=== PATIENT | female | born 1985 | race American Indian/Alaskan Native ===

== ENCOUNTER 2019-03-01 12:52 | Inpatient (IN) | payer OTHER, MEDICAID ==
[2019-03-01] MEDS ORDERED: TERBUTALINE 1 MG/1 ML INJ IVP PRN (13:41)
[2019-03-01] MEDS ORDERED: BUTORPHANOL 2 MG/1 ML INJ IV PRN (13:41)
[2019-03-01] MEDS ORDERED: MINERAL OIL 30 ML ORAL LIQD PO PRN (13:41)
[2019-03-01] MEDS ORDERED: TERBUTALINE 1 MG/1 ML INJ SUB-Q PRN (13:41)
[2019-03-01] MEDS ORDERED: NALOXONE 0.4 MG/1 ML INJ IV PRN (13:41)
[2019-03-01] MEDS ORDERED: AMPICILLIN/NS 2 GM/100 ML 2 GM/100 ML BAG IV ONE (13:41)
[2019-03-01] MEDS ORDERED: ONDANSETRON 4 MG/2 ML INJ IV PRN (13:41)
[2019-03-01] MEDS ORDERED: LIDOCAINE (2%) 20 MG/1 ML VIAL 20 ML MDV INFILTRATI ONE (13:41)
[2019-03-01] MEDS ORDERED: OXYTOCIN DRIP 30 UNITS/500 ML BAG IV SCH (14:00)
[2019-03-01] MEDS ORDERED: OXYTOCIN 20 UNIT/1000ML DRIP 20 UNITS/1,000 ML BAG IV SCH (14:00)
--- NOTE | 2019-03-01 14:00 | History and Physical Report ---
History of Present Illness Date of examination: 03/01/19 Chief complaint: SROM History of present illness: Past History : 1 Term Births: 0 Premature Births: 0 Living Children: 0 Para: 0 Mult. Births: 0 Prev : 0 Aborta: 0 Elect. Ab: 0 Spont. Ab: 0 Ectopics: 0 Risk Factors: Smoked Tobacco Use: Never smoker Smokeless Tobacco Use: Never Passive smoke exposure: no Drug use: no HIV high-risk behavior: low risk Alcohol use: no Dietary Counseling: pn yes Past Medical History: Reviewed history from 02/10/2016 and no changes required: Hypertension Past Surgical History: Reviewed history from 08/11/2014 and no changes required: negative Past Medical History Anesthesia Complications: negative Anemia: negative Autoimmune Disorder: negative Bleeding Disorder: negative Blood Transfusions: negative Breast Disease: negative Diabetes: negative Heart Disease: negative Hypertension: positive, CHTN Hepatitis/Liver Disease: negative Kidney Disease/UTI: negative Neurologic/Epilepsy/Migraines: negative Phlebitis/Varicosities: negative Psychiatric: negative Pulmonary Disease/Asthma: negative Thyroid Disease: negative Hospitalizations: negative Surgery (Non-restorative rehab aide): negative Abnormal PAP: negative, Colpo, normal, 06/25/18 RAMÓN Exposure: positive Infertility: positive Uterine Anomaly: positive Uterine Surgery (not C/S): positive Other Gynecologic Problems: positive Medical History Comments: CHTN- on Labetolol and HCTZ Family Hx: mom- asthma, HTN Social Hx: Patient is single Denies ETOH/smoking/drugs works as early education teacher Smoking History: Patient has never smoked. Infection History Hx of STD: HPV HIV Risk Eval: low risk Hepatitis B Risk Eval: low risk Personal hx. of genital herpes: no Partner hx. of genital herpes: no Rash, Viral, or Febrile illness since last LMP? no Varicella/Chicken Pox Status: Previous Disease TB Risk: no Genetic History Congenital Heart Defect: Mom: no Dad: no Giovanni Disease: Mom: no Dad: no Thalassemia Mom: no Dad: no Neural Tube Defect Mom: no Dad: no Down's Syndrome Mom: no Dad: no Grady-Sachs Mom: no Dad: no Sickle Cell Disease/Trait Mom: no Dad: no Hemophilia Mom: no Dad: no Muscular Dystrophy Mom: no Dad: no Cystic Fibrosis Mom: no Dad: no [place] Chorea Mom: no Dad: no Mental Retardation Mom: no Dad: no Fragile X Mom: no Dad: no Other Genetic/Chromosomal Disorder Mom: no Dad: no Child w/other defect Mom: no Dad: no Enviromental Exposures Xray Exposure: no Medication, drug, or alcohol use since LMP: no Chemical/Other Exposure: no Exposure to Cat Liter: no Hx of Parvovirus (Fifth Disease): no 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: No known allergies Past History - Obstetrical History Expected Date of Delivery: 03/21/19 Actual Gestation: 37 Week(s) 1 Day(s) : 1 Medications and Allergies Allergies Allergy/AdvReac Type Severity Reaction Status Date / Time No Known Allergies Allergy Unverified 03/01/19 13:13 Active Meds: Active Medications Butorphanol Tartrate (Stadol) 2 mg IV Q2H PRN PRN Reason: Pain , Severe (7-10) Ephedrine Sulfate (Ephedrine Sulfate) 10 mg IV Q2M PRN PRN Reason: Hypotension Oxytocin/Sodium Chloride (Pitocin/Ns 20 Unit/1000ml Drip) 20 units in 1,000 mls @ 125 mls/hr IV DIRECT VINCE Oxytocin/Sodium Chloride (Pitocin/Ns 30 Unit/500ml) 30 units in 500 mls @ 4 mls/hr IV TITR VINCE; Protocol Lactated Ringer's (Lactated Ringers) 1,000 mls @ 125 mls/hr IV DIRECT VINCE Ampicillin Sodium (Ampicillin/Ns 1 Gm/50 Ml) 1 gm in 50 mls @ 100 mls/hr IV Q4HR VINCE; Protocol Ampicillin Sodium (Ampicillin/Ns 2 Gm/100 Ml) 2 gm in 100 mls @ 100 mls/hr IV ONCE ONE; Protocol Stop: 03/01/19 14:40 Lidocaine (Xylocaine 2%) 20 ml INFILTRATI ONCE ONE Stop: 03/01/19 13:42 Mineral Oil (Mineral Oil) 30 ml PO QHS PRN PRN Reason: Constipation Naloxone HCl (Naloxone) 0.1 mg IV Q2MIN PRN PRN Reason: Res Rate </= 8 or 02 SAT < 92% Ondansetron HCl (Zofran) 4 mg IV Q8H PRN PRN Reason: Nausea And Vomiting Terbutaline Sulfate (Brethine) 0.25 mg SUB-Q ONCE PRN PRN Reason: Hyperstimulation/Hypertonicity Terbutaline Sulfate (Brethine) 0.25 mg IVP ONCE PRN PRN Reason: Hyperstimulation/Hypertonicity Review of Systems All systems: negative Genitourinary: leakage of fluid - Physical Exam Breasts: Positive: deferred Cardiovascular: Regular rate Lungs: Positive: Normal air movement Abdomen: Negative: tenderness Genitourinary (Female): Positive: normal external genitalia, normal perenium Uterus: Positive: enlarged. Negative: tender Extremities: Positive: normal. Negative: tenderness, edema - Obstetrical FHR: category 1 Uterine Contraction Monitor Mode: External Cervical Dilatation: 2 Cervical Effacement Percentage: 100 station: -2 ROM per RN Uterine Contraction Pattern: Irregular Results All other labs normal. Assessment and Plan - Patient Problems (1) 37 weeks gestation of Current Visit: Yes Status: Acute (2) membrane rupture Current Visit: Yes Status: Acute Plan to address problem: Start pitocin (3) Body mass index (BMI) of 40.1 to 44.9 in adult Current Visit: Yes Status: Acute (4) Hypertension Current Visit: Yes Status: Chronic Qualifiers: Hypertension type: essential hypertension Qualified Code(s): I10 - Essential (primary) hypertension Plan to address problem: She has not been on medication during this Will check PIH labs (5) GBS carrier Current Visit: Yes Status: Acute Plan to address problem: Start Ampicillin
[2019-03-01 14:01] LABS: Hemoglobin 12.6 gm/dl (10.1-14.3); Mean Corpuscular HGB Conc 34 % (30-34); Mean Corpuscular Volume 92 fl (79-97); Platelet Count 265 K/mm3 (140-440); Red Blood Count 4.02 M/mm3 (3.65-5.03); Red Cell Distribution Width 13.5 % (13.2-15.2)
[2019-03-01] MEDS: LACTATED RINGERS 1,000 ML IV SCH (14:33)
[2019-03-01] MEDS: AMPICILLIN/NS 1 GM/50 ML 1 GM/50 ML BAG IV SCH ×2 (18:27→23:34)
[2019-03-01] MEDS ORDERED: NALOXONE 2 MG/2 ML INJ IV PRN (18:48)
[2019-03-01] MEDS ORDERED: DEXMEDETOMIDINE 200 MCG/2 ML VIAL IV ONE (18:52)
--- NOTE | 2019-03-01 19:04 | Progress Note ---
Assessment and Plan Anticipate vaginal delivery - Patient Problems (1) 37 weeks gestation of Current Visit: Yes Status: Acute (2) membrane rupture Current Visit: Yes Status: Acute (3) Body mass index (BMI) of 40.1 to 44.9 in adult Current Visit: Yes Status: Acute (4) Hypertension Current Visit: Yes Status: Chronic Qualifiers: Hypertension type: essential hypertension Qualified Code(s): I10 - Ess ential (primary) hypertension (5) GBS carrier Current Visit: Yes Status: Acute Subjective - Subjective Date of service: 03/01/19 Principal diagnosis: IUP@37 weeks, SROM, active labor Interval history: Past History : 1 Term Births: 0 Premature Births: 0 Living Children: 0 Para: 0 Mult. Births: 0 Prev : 0 Aborta: 0 Elect. Ab: 0 Spont. Ab: 0 Ectopics: 0 Risk Factors: Smoked Tobacco Use: Never smoker Smokeless Tobacco Use: Never Passive smoke exposure: no Drug use: no HIV high-risk behavior: low risk Alcohol use: no Dietary Counseling: pn yes Past Medical History: Reviewed history from 02/10/2016 and no changes required: Hypertension Past Surgical History: Reviewed history from 08/11/2014 and no changes required: negative Past Medical History Anesthesia Complications: negative Anemia: negative Autoimmune Disorder: negative Bleeding Disorder: negative Blood Transfusions: negative Breast Disease: negative Diabetes: negative Heart Disease: negative Hypertension: positive, CHTN Hepatitis/Liver Disease: negative Kidney Disease/UTI: negative Neurologic/Epilepsy/Migraines: negative Phlebitis/Varicosities: negative Psychiatric: negative Pulmonary Disease/Asthma: negative Thyroid Disease: negative Hospitalizations: negative Surgery (Non-frame wirer): negative Abnormal PAP: negative, Colpo, normal, 06/25/18 RAMÓN Exposure: positive Infertility: positive Uterine Anomaly: positive Uterine Surgery (not C/S): positive Other Gynecologic Problems: positive Medical History Comments: CHTN- on Labetolol and HCTZ Family Hx: mom- asthma, HTN Social Hx: Patient is single Denies ETOH/smoking/drugs works as computer science teacher Smoking History: Patient has never smoked. Infection History Hx of STD: HPV HIV Risk Eval: low risk Hepatitis B Risk Eval: low risk Personal hx. of genital herpes: no Partner hx. of genital herpes: no Rash, Viral, or Febrile illness since last LMP? no Varicella/Chicken Pox Status: Previous Disease TB Risk: no Genetic History Congenital Heart Defect: Mom: no Dad: no Giovanni Disease: Mom: no Dad: no Thalassemia Mom: no Dad: no Neural Tube Defect Mom: no Dad: no Down's Syndrome Mom: no Dad: no Grady-Sachs Mom: no Dad: no Sickle Cell Disease/Trait Mom: no Dad: no Hemophilia Mom: no Dad: no Muscular Dystrophy Mom: no Dad: no Cystic Fibrosis Mom: no Dad: no [place] Chorea Mom: no Dad: no Mental Retardation Mom: no Dad: no Fragile X Mom: no Dad: no Other Genetic/Chromosomal Disorder Mom: no Dad: no Child w/other defect Mom: no Dad: no Enviromental Exposures Xray Exposure: no Medication, drug, or alcohol use since LMP: no Chemical/Other Exposure: no Exposure to Cat Liter: no Hx of Parvovirus (Fifth Disease): no 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: No known allergies Patient reports: contractions Objective - Vital Signs Vital Signs: Vital Signs - 12hr 03/01/19 03/01/19 03/01/19 13:58 14:06 15:14 Temperature 98.2 F Pulse Rate 100 H 103 H Respiratory 18 Rate Blood Pressure 142/67 120/76 O2 Sat by Pulse Oximetry 03/01/19 03/01/19 03/01/19 18:22 18:23 18:27 Temperature Pulse Rate 68 106 H Respiratory Rate Blood Pressure O2 Sat by Pulse 87 82 L 100 Oximetry 03/01/19 03/01/19 03/01/19 18:32 18:37 18:42 Temperature Pulse Rate 100 H 107 H 109 H Respiratory Rate Blood Pressure O2 Sat by Pulse 100 100 100 Oximetry 03/01/19 03/01/19 03/01/19 18:47 18:52 18:56 Temperature Pulse Rate 114 H 100 H 113 H Respiratory Rate Blood Pressure 141/99 O2 Sat by Pulse 99 100 Oximetry 03/01/19 18:57 Temperature Pulse Rate 121 H Respiratory Rate Blood Pressure O2 Sat by Pulse 100 Oximetry - Exam Breasts: deferred Cardiovascular: Regular rate Lungs: Normal air movement Vulva: both: normal FHR: category 2 FHR comments: Marked variability noted, possibility d/t stadol, ISE placed w/o difficulty, + accels with scalp stim, FHT"s 110's now, normal variability. Pitocin off, O2 placed, she's sitting for epidural now. Cervical Dilatation: 5.5 Cervical Effacement Percentage: 100 station: 0 Uterine Contraction Pattern: Regular - Labs Labs: Laboratory Results - last 24 hr 03/01/19 03/01/19 03/01/19 13:38 13:38 13:38 WBC 7.4 RBC 4.02 Hgb 12.6 Hct 37.0 MCV 92 MCH 31 MCHC 34 RDW 13.5 Plt Count 265 Syphilis IgG Antibody Non-reactive Blood Type B POSITIVE Antibody Screen Negative
[2019-03-01] MEDS: ePHEDrine SULFATE 50 MG/1 ML INJ IV PRN ×4 (19:25→19:59)
--- NOTE | 2019-03-01 19:27 | Anesthesia Consultation ---
Anesthesia Consult and Med Hx Date of service: 03/01/19 - Airway Anesthetic Teeth Evaluation: Good ROM Head & Neck: Adequate Mental/Hyoid Distance: Adequate Mallampati Class: Class III Intubation Access Assessment: Probably Good - Pulmonary Exam CTA: Yes - Cardiac Exam Cardiac Exam: RRR - Pre-Operative Health Status ASA Pre-Surgery Classification: ASA3 Proposed Anesthetic Plan: Epidural - Pre-Anesthesia Comment Pre-Anesthesia Comments: PSH: DENIES - Pulmonary Hx Smoking: No Hx Asthma: No Hx Respiratory Symptoms: No SOB: No COPD: No Home Oxygen Therapy: No Hx Pneumonia: No Hx Sleep Apnea: No - Cardiovascular System Hx Hypertension: No Hx Coronary Artery Disease: No Hx Heart Attack/AMI: No Hx Angina: No Hx Percutaneous Transluminal Coronary Angioplasty (PTCA): No Hx Cardia Arrhythmia: No Hx Pacemaker: No Hx Internal Defibrillator: No Hx Valvular Heart Disease: No Hx Heart Murmur: No Hx Peripheral Vascular Disease: No - Central Nervous System Hx Neuromuscular Disorder: No Hx Seizures: No CVA: No Hx Back Pain: Yes Hx Psychiatric Problems: No - Gastrointestinal Hx Ulcer: No Hx Gastroesophageal Reflux Disease: Yes - Endocrine Hx Renal Disease: No Hx End Stage Renal Disease: No Hx Cirrhosis: No Hx Liver Disease: No Hx Insulin Dependent Diabetes: No Hx Non-Insulin Dependent Diabetes: No Hx Thyroid Disease: No Hx Hypothyroidism: No Hx Hyperthyroidism: No - Hematic Hx Anemia: No Hx Sickle Cell Disease: No - Other Systems Hx Alcohol Use: No Hx Substance Use: No Hx Cancer: No Hx Obesity: Yes (BMI 41)
[2019-03-01] MEDS ORDERED: ePHEDrine SULFATE 50 MG/1 ML INJ ONE (19:49)
[2019-03-01] MEDS: fentaNYL-BUPIV 2 MCG/ML-0.125% 200 MCG/100 ML BAG EPIDURAL SCH (20:29)
[2019-03-02] MEDS: LACTATED RINGERS 1,000 ML IV SCH (00:23)
[2019-03-02] MEDS ORDERED: LIDOCAINE MPF (2%) 20 MG/1 ML VIAL 5 ML ONE (04:40)
[2019-03-02] MEDS: AMPICILLIN/NS 1 GM/50 ML 1 GM/50 ML BAG IV SCH (04:40)
[2019-03-02] MEDS: fentaNYL-BUPIV 2 MCG/ML-0.125% 200 MCG/100 ML BAG EPIDURAL SCH (04:41)
[2019-03-02] MEDS ORDERED: DEXMEDETOMIDINE 200 MCG/2 ML VIAL IV ONE (04:41)
[2019-03-02] MEDS: ePHEDrine SULFATE 50 MG/1 ML INJ IV PRN ×2 (04:56→05:00)
--- NOTE | 2019-03-02 07:22 | Procedure Note ---
OB Delivery Note - Delivery Date of Delivery: 03/02/19 Calender Operator Helper: BELKIS OTTO Estimated blood loss: 300cc - Vaginal Delivery presentation: vertex Delivery position: OP Intrapartum events: PROM->1hr before delivery, other(please specify) (CHTN; GBS+) Delivery induction: oxytocin Delivery augmentation: pitocin Delivery monitor: internal FHT, internal uterine Route of delivery: Delivery placenta: spontaneous Delivery cord: 3 umbilical vessels Episiotomy: midline Delivery laceration: 2nd degree Delivery repair: vicryl Anesthesia: epidural Delivery comments: Pt complete X several hours. Now no urge to push. Trial push baby came down. Pushed X 90min. live born male over 2nd degree episiotomy Baby to mom's abdomen skin to skin . Cord blood obtained Placenta and membrane delivered complete and intact 3 vessel cord. Pitocin IVFs Repair with 2-0 vicryl, hemostasis achieved. Uterus and cervix inspected. 8/9, EBL 300, Wgt 5-13. Mom and baby remain LDR stable - A at 1 minute: 8 at 5 minutes: 9 Gender: Male (wgt 5-13)
[2019-03-02] MEDS ORDERED: ACETAMINOPHEN 325 MG TAB PO PRN (07:30)
[2019-03-02] MEDS ORDERED: diphenhydrAMINE 25 MG CAP PO PRN (07:30)
[2019-03-02] MEDS ORDERED: LANOLIN/ZINC/DIMETHICONE (LANSINOH) 7 GM TP PRN (07:30)
[2019-03-02] MEDS ORDERED: PROMETHAZINE 25 MG TAB PO PRN (08:00)
[2019-03-02] MEDS ORDERED: IBUPROFEN 600 MG TAB PO SCH (08:00)
[2019-03-02] MEDS: WITCH HAZEL/ GLYCERIN PAD TP PRN (10:41)
[2019-03-02] MEDS: HYDROcodone/ACETAMINOPHEN 5-325 MG TAB PO PRN ×2 (11:01→18:12)
[2019-03-02] MEDS: IBUPROFEN 800 MG TAB PO SCH ×2 (15:51→20:11)
[2019-03-02 21:42] LABS: Hematocrit 29.9 % (30.3-42.9); Hemoglobin 10.4 gm/dl (10.1-14.3)
[2019-03-02] MEDS ORDERED: MAGNESIUM HYDROXIDE (MOM) ORAL LIQD UDC PO PRN (22:00)
[2019-03-03] MEDS: IBUPROFEN 800 MG TAB PO SCH ×3 (01:25→18:10)
[2019-03-03] MEDS ORDERED: TETANUS,DIPH,PERTUSS(ACELL) VACCINE 0.5 ML SYRINGE IM ONE (06:00)
--- NOTE | 2019-03-03 08:02 | Discharge Summary ---
Providers - Providers Date of Admission: 03/01/19 13:57 Date of discharge: 03/03/19 (desires d/c home) Attending physician: GURU HAMILTON Primary care physician: GURU HAMILTON Hospitalization Reason for admission: labor Condition: Good Pertinent studies: H&H 10.4/29.9 Procedures: uncomplicated Hospital course: uncomplicated and course Disposition: DC-01 TO HOME OR SELFCARE - Discharge Diagnoses (1) Spontaneous vaginal delivery Status: Acute Core Measure Documentation - Palliative Care Palliative Care/ Comfort Measures: Not Applicable - Core Measures Any of the following diagnoses?: none Exam - Constitutional Vitals: Temp Pulse Resp BP Pulse Ox 98.2 F 94 H 20 102/47 98 03/03/19 00:09 03/03/19 00:09 03/03/19 00:09 03/03/19 00:09 03/03/19 00:09 General appearance: Present: no acute distress, well-nourished - EENT Eyes: Present: PERRL ENT: hearing intact, clear oral mucosa - Neck Neck: Present: supple, normal ROM - Respiratory Respiratory effort: normal - Cardiovascular Rhythm: regular - Abdominal General gastrointestinal: Present: soft, non-tender - Integumentary Integumentary: Present: clear, warm, dry - Musculoskeletal Musculoskeletal: gait normal, strength equal bilaterally - Psychiatric Psychiatric: appropriate mood/affect, intact judgment & insight - Neurologic Neurologic: CNII-XII intact, moves all extremities - Additional findings Additional findings: fundus firm, lochia scant, Plan Activity: no restrictions Diet: regular Follow up with: GURU HAMILTON MD [Primary Care Provider] - 7 Days (Congratulations! Please call [phone] to schedule your son's circumcision in 1 week and your postpa rtum visit in 4 weeks. Bring EMLA cream to your son's visit and await further teaching. Call for any questions or complaints.) Prescriptions: Lidocain2.5%/Prilocai2.5% [Emla] 5 gm TP PRN #1 tube Ibuprofen [Motrin 800 MG tab] 800 mg PO TID PRN #30 tablet PRN Reason: Pain
[2019-03-03] MEDS ORDERED: MEASLES, MUMPS & RUBELLA 12,500 UNIT/0.5 ML VACCINE SUB-Q ONE (11:00)
[2019-03-03] MEDS: WITCH HAZEL/ GLYCERIN PAD TP PRN (16:54)
[2019-03-04] MEDS ORDERED: TETANUS,DIPH,PERTUSS(ACELL) VACCINE 0.5 ML SYRINGE IM ONE (09:00)
[2019-03-04 13:21] VITALS: BP 138/67
== END 2019-03-04 14:40 | disposition home or self-care (01) | DRG 806 ==
LOC: TRG 12:52 → LD 13:57 → OB 03-02 09:52
PROVIDERS: ADMIT Obstetrics & Gynecology; ATTEND Obstetrics & Gynecology
PROC: 3E033VJ Introduction of Other Hormone into Peripheral Vein, Percutaneous Approach (ICD-10-PCS; 2019-03-01)
PROC: 10E0XZZ Delivery of Products of Conception, External Approach (ICD-10-PCS; principal; 2019-03-02)
PROC: 0KQM0ZZ Repair Perineum Muscle, Open Approach (ICD-10-PCS; 2019-03-02)
PROC: 10H07YZ Insertion of Other Device into Products of Conception, Via Natural or Artificial Opening (ICD-10-PCS; 2019-03-02)
PROC: 0W8NXZZ Division of Female Perineum, External Approach (ICD-10-PCS; 2019-03-02)
PROC: 3E0R3BZ Introduction of Anesthetic Agent into Spinal Canal, Percutaneous Approach (ICD-10-PCS; 2019-03-02)
PROC: 00HU33Z Insertion of Infusion Device into Spinal Canal, Percutaneous Approach (ICD-10-PCS; 2019-03-02)
PROC: 3E0134Z Introduction of Serum, Toxoid and Vaccine into Subcutaneous Tissue, Percutaneous Approach (ICD-10-PCS; 2019-03-03)
PROC: 3E0234Z Introduction of Serum, Toxoid and Vaccine into Muscle, Percutaneous Approach (ICD-10-PCS; 2019-03-04)
DX: O42.92 Full-term premature rupture of membranes, unspecified as to length of time between rupture and onset of labor (principal); O10.02 Pre-existing essential hypertension complicating childbirth; Z37.0 Single live birth; O99.824 Streptococcus B carrier state complicating childbirth; Z82.49 Family history of ischemic heart disease and other diseases of the circulatory system; Z82.5 Family history of asthma and other chronic lower respiratory diseases; Z3A.37 37 weeks gestation of pregnancy; K21.9 Gastro-esophageal reflux disease without esophagitis; O99.214 Obesity complicating childbirth; O99.62 Diseases of the digestive system complicating childbirth; O70.1 Second degree perineal laceration during delivery
CPT/HCPCS: 36415; 85014; 85018; 85027; 86592; 86850; 86900; 86901; 90715; G0378; J0290; J0595; J2590; J3490; J7120; Q0169

== ENCOUNTER 2020-10-07 08:08 | Outpatient (CLI) | payer OTHER, MEDICAID ==
--- NOTE | 2020-10-07 14:24 | Ultrasound Report ---
BILATERAL DIGITAL DIAGNOSTIC MAMMOGRAM WITH CAD , 10/07/2020 LEFT LIMITED BREAST ULTRASOUND CLINICAL INFORMATION / INDICATION: Left breast pain for 2 weeks which she states has now resolved. Gilmer cuevas also is experiencing quite left nipple discharge. TECHNIQUE: Digital bilateral mammographic imaging was performed. Limited ultrasound was performed. Th is examination was interpreted with the benefit of Computer-Aided Detection (CAD) analysis. COMPARISON: This is the patient's first mammogram. FINDINGS: Breast Density: The breasts are heterogeneously dense, which may obscure small masses. MAMMOGRAPHIC FINDINGS: No dominant mass, suspicious calcifications, or architectural distortion in ei ther breast. The patient has multiple keloids bilaterally. I do not see a mammographic correlate to a ccount for the patient's complaint of nonbloody nipple discharge and/or pain. ULTRASOUND FINDINGS: Targeted ultrasound evaluation was performed of the area of interest. Targeted evaluation of the left breast including lower inner quadrant corresponding to focal area of pain, as well as retroareolar region for nipple discharge, is grossly unremarkable. No mass, cyst, or focal a ambrosio of shadowing is noted. There is mild ductal ectasia in the subareolar region without evidence for intraductal mass. IMPRESSION: No mammographic or sonographic evidence of malignancy. Clinical correlation for the compl aint of nonbloody nipple discharge and breast pain is recommended. Follow up recommendation: Unless otherwise clinically indicated, recommend patient return to routine screening mammography at age 40. BI-RADS Category 2: Benign. A "normal" or negative report should not discourage follow up or biopsy of a clinically significant f inding. A written summary of these findings will be mailed to the patient. The patient will be entered into a mammography reporting system which will generate a reminder letter for the patient's next appointmen t at the appropriate interval. According to the [employer], yearly mammograms are recommended starting at age 40 and continuing as long as a woman is in good health. Breast MRI is recommended for women with an wilder roximately 20-25% or greater lifetime risk of breast cancer, including women with a strong family his tory of breast or ovarian cancer and women who have been treated for Hodgkin's disease. Signer Name: Latisha Mccullough MD Signed: 10/07/2020 2:20 PM Workstation Name: [id number]
== END 2020-10-07 08:09 | disposition home or self-care (01) ==
LOC: MAMMO 08:08
PROVIDERS: ATTEND Obstetrics & Gynecology
DX: N60.42 Mammary duct ectasia of left breast (principal); N60.41 Mammary duct ectasia of right breast; N64.3 Galactorrhea not associated with childbirth; A00-B99 Certain infectious and parasitic diseases
CPT/HCPCS: 77066